=== PATIENT | male | born 1945 | race Caucasian/White ===

== ENCOUNTER → 2021-10-05 07:16 | Outpatient (CLI) | payer MEDICARE, OTHER, SELFPAY ==
--- NOTE | 2021-10-05 07:21 | DI.RAD.S_ITS ---
PROCEDURE: XR LUMBAR SPINE MIN 4V INDICATIONS: BACK PAIN TECHNIQUE: 5 views of the lumbar spine were acquired, including bilateral oblique views. COMPARISON: None. FINDINGS: Bones: 5 nonrib-bearing vertebrae are present. There is normal bony alignment. No vertebral body compression fractures. No suspicious bony lesions. Intervertebral disc space narrowing, endplate sclerosis, osteophytosis, and facet sclerosis are present at L1-2, L2-3, L4-5, and L5-S1. Soft tissues: Overlying bowel gas pattern is normal. No suspicious soft tissue calcifications. Oblique images: No pars defects. IMPRESSION: Degenerative change. No spondylolysis or spondylolisthesis. Dictated by: Kristine Foster M.D. on 10/05/2021 at 8:24 Approved by: Kristine Foster M.D. on 10/05/2021 at 8:25
== END ==
PROVIDERS: PCP Family Medicine; Referring Provider Physical Medicine & Rehabilitation; Visit Provider Physical Medicine & Rehabilitation
DX: M47.816 Spondylosis without myelopathy or radiculopathy, lumbar region (principal); M47.817 Spondylosis without myelopathy or radiculopathy, lumbosacral region; M48.061 Spinal stenosis, lumbar region without neurogenic claudication; M54.9 Dorsalgia, unspecified; Z86.711 Personal history of pulmonary embolism; Z96.652 Presence of left artificial knee joint; Z96.643 Presence of artificial hip joint, bilateral
CPT/HCPCS: 72110; 99214

== ENCOUNTER → 2024-06-18 11:23 | Outpatient (CLI) | payer MEDICARE, OTHER, SELFPAY | PROVIDERS: PCP Family Medicine; Visit Provider Urology | DX: Z01.818 Encounter for other preprocedural examination (principal); N40.1 Benign prostatic hyperplasia with lower urinary tract symptoms; N13.8 Other obstructive and reflux uropathy; N28.89 Other specified disorders of kidney and ureter; Z12.5 Encounter for screening for malignant neoplasm of prostate | CPT/HCPCS: 87086; 99214 ==

== ENCOUNTER 2024-06-25 06:23 | Day surgery (SDC) | payer MEDICARE, OTHER, SELFPAY ==
[2024-06-18 13:28] VITALS: BMI 30.2
[2024-06-25] VITALS (10 sets, daily range): BP systolic 110–139; BP diastolic 72–86; PULSE 64–79; RESP 12–16; TEMP 35.9–36.5; O2SAT 93–96; BMI 30.2
--- NOTE | 2024-06-25 | PATH_ITS ---
[facility] Accession Number: [id number] No. of containers..01 Tissue . 01 Material submitted: . prostate - PROSTATE CHIPS . 01 Diagnosis: PROSTATE CHIPS, TRANSURETHRAL PROSTATE TISSUE RESECTION: Prostatic parenchyma, 5 grams, with glandular and stromal hypertrophy. Mild chronic prostatitis present. Benign urothelial mucosa present. Negative for high-grade prostatic intraepithelial neoplasia or invasive malignancy. MRV 06/29/2024 1512 Local . 01 Electronically signed: . Jael Garsia MD, Pathologist NPI- [id number] . 01 Gross description: . Received in formalin with two patient identifiers and prostate chips, are multiple shen soft tissue fragments admixed with a small amount of hemorrhagic material weighing 5 grams and aggregating to 4.3 x 4.4 x 0.7 cm. Submitted entirely in A1-A3. ([id number]) /MRV 06/28/2024 1556 Local . 01 Pathologist provided ICD-10: N40.1 . 01 CPT . 449106 Specimen Comment: A courtesy copy of this report has been sent to [facility] Pathology Performed at: [address] [facility] [id number] MD Joseph Rosas MD Phone: [phone]
[2024-06-25] MEDS: LACTATED RINGERS 1,000 ML 21 ML IV ×2 (07:26→08:42)
--- NOTE | 2024-06-25 07:38 | PM.PREOP ---
Pre-operative Note COVID-19 COVID-19 status: Not tested Interval Note History & Physical reviewed/Exam performed by Physician: Yes Changes to H&P: No
[2024-06-25] MEDS: CEFAZOLIN 2 GM/100 ML PREMIX 100 ML IV (08:00)
--- NOTE | 2024-06-25 08:11 | SUR.OPER ---
Lithotomy on padded OR bed, head on pillow, arms secured on padded arm boards at <90 degrees abduction. Legs secured in padded yellow fins stirrups.
--- NOTE | 2024-06-25 09:24 | PM.OP.1 ---
Procedure & Clinicians Procedure: Cystoscopy Aquablation Same procedure as scheduled: Yes Indications: 78 y/o M w/ symptoms consistent w/ BPH and LUTS that are currently managed with Alfuzosin 10mg and Finasteride 5mg daily. He is not happy with his urinary habits at this time and strongly prefers surgical intervention as this could rid him of two additional medications. Surgeon: Jairo Sullivan Click Yes if Unassisted: Yes Anesthesia Type: General Operative Notes Findings: Coaptating lateral prostatic lobes, no intravesical median lobe, 41g TRUS volume Closure Type: not applicable Specimen(s): other (prostate chips) Applied: catheter Estimated Blood Loss (mL): 50 Procedure in detail: After informed consent was obtained, the patient was identified brought to the operating room where he was placed in his supine position on the table.? Once there anesthesia was induced and maintained.? Ensuring an adequate level of anesthesia the patient was transitioned to the lithotomy position where after time-out he was prepped.? After prepping, ensuring an adequate level of anesthesia, administration IV antibiotics and time-out 60 cc of ultrasound gel was instilled within the rectum and the ultrasound probe which had been attached to the TRUS stepper which was attached to the TRUS stepper articulating arm which was secured to the bed was advanced into the rectum under direct vision via the ultrasound.? The ultrasound probe was then aligned and confirmation made that the prostate was centered and aligned in both the sagittal and transverse views.? The bladder neck, verumontanum, central and transitional zones were identified.? With the ultrasound in place and adjusted the patient was then draped in a sterile fashion. With the patient draped the 24 Danish aqua beam handpiece was then inserted through the urethra and advanced into the bladder.? Cystoscopy was then performed and no concerning bladder mass or lesions were noted.? Bilateral ureteral orifices were noted to be orthotopic in nature.? As the cystoscope was advanced the level of the sphincter, verumontanum, bladder neck were all identified via ultrasound and under direct vision.? The aqua beam hand place was then secured to the handpiece articulating arm which had been secured to the bed.? The Aquablation handpiece and TRUS probe were confirmed to be parallel and colinear.? Confirmation was then made that the aqua beam handpiece and nozzle was centered and anterior to the bladder neck. ?The cystoscope was then retracted under direct vision in the sphincter and verumontanum were identified.? The tip of the cystoscope was then placed proximal to the external sphincter.? Compression was applied with the TRUS probe to the prostate.? The alignment of the TRUS probe and aqua beam handpiece was once again confirmed.? Horizontal alignment of the handpiece water jet was then performed.? With these adjustments made, the treatment zones were then planned using real-time ultrasound.? In the largest transverse view of the prostate the depth and radial angles were determined and set again in the transverse view of the prostate.? In the longitudinal and sagittal view the Aquablation nozzle was identified and its position registered with the software and robot.? The treatment contours were then determined and adjusted to reflect the intended margins of resection.? Following our plan confirmation, the Aquablation resection treatment was started.? A 2nd pass was then completed in similar fashion after the 1st pass had been completed.? At this point, the Aqua hand piece was removed from the urethra. The 26Fr resectoscope was then inserted into the urethra and cystoscopy was repeated.? The Elik ornamental ironworker was utilized to evacuate the blood clots from the bladder.? The bladder neck was then resected using the bipolar Gyrus loop.? Bilateral ureteral orifices were again identified and noted to be intact at case end.? Hemostasis was obtained and noted to be excellent at case end.? The resectoscope was then removed and a 24Fr Maxwell 3-way hematuria catheter was inserted through the urethra and into the bladder.? 45cc of sterile water was utilized for balloon insufflation.? Efflux was noted to be clear at case end.? Anesthesia was reversed, he was extubated in the OR and transferred to the PACU in stable condition for recovery. Complications: none Post-operative Condition: stable Disposition: PACU Plan for aftercare: Will run continuous bladder irrigation for the next few hours and slowly begin to titrate down. If efflux remains clear, will discharge home with cristobal catheter in place and have him return to Urology clinic on 28 Jun 2024 for a voiding trial. He will hold his Eliquis until his catheter has been removed.
[2024-06-25] MEDS: OXYCODONE IR 5 MG TABLET PO (11:07)
--- NOTE | 2024-06-25 11:48 | SUR.PHASEII ---
See verified telephone order from Dr Sullivan for Pyridium
[2024-06-25] MEDS: PHENAZOPYRIDINE 100 MG TABLET 200 MG PO (11:57)
== END 2024-06-25 13:25 | disposition home or self-care (01) ==
PROVIDERS: PCP Family Medicine; Referring Provider Urology; Visit Provider Urology
PROC: 0VT08ZZ Resection of Prostate, Via Natural or Artificial Opening Endoscopic (ICD-10-PCS; CPT 52597; principal; 2024-06-25 07:45)
DX: N40.1 Benign prostatic hyperplasia with lower urinary tract symptoms (principal); R33.9 Retention of urine, unspecified; R39.12 Poor urinary stream; R39.11 Hesitancy of micturition; R35.1 Nocturia
CPT/HCPCS: 0421T; 82962; C2596; J0330; J0690; J1100; J2405; J2704; J3010

== ENCOUNTER → 2024-08-09 12:51 | Outpatient (CLI) | payer MEDICARE, OTHER, SELFPAY | PROVIDERS: PCP Family Medicine; Visit Provider Urology | DX: N40.1 Benign prostatic hyperplasia with lower urinary tract symptoms (principal); N13.8 Other obstructive and reflux uropathy | CPT/HCPCS: 87077; 87086 ==